=== PATIENT | male | born 1940 | race Caucasian/White ===

== ENCOUNTER 2024-03-10 15:17 | Outpatient (CLI) | payer MEDICARE, OTHER ==
[2024-03-10 15:33] LABS: HCT - HEMATOCRIT 40.3 % (42.0-52.0); HGB - HEMOGLOBIN 13.2 g/dL (14.0-18.0); MEAN CORPUSCULAR HEMOGLOBIN 30.8 pg (27.0-31.0); MEAN CORPUSCULAR HGB CONC 32.8 g/dL (32.0-36.0); MEAN CORPUSCULAR VOLUME 93.9 fL (80.0-94.0); MEAN PLATELET VOLUME 9.4 fL (7.4-11.4); RED BLOOD COUNT 4.29 10^6/uL (4.70-6.10); RED CELL DISTRIBUTION WIDTH 13.4 % (12.0-15.0); WHITE BLOOD COUNT 4.7 x10^3/uL (4.8-10.8)
[2024-03-10 15:47] LABS: ALBUMIN 4.4 g/dL (3.2-5.5); ALBUMIN/GLOBULIN RATIO 1.7 (1.0-2.2); BILIRUBIN,TOTAL 0.5 mg/dL (0.2-1.0); CALCIUM 10.9 mg/dL (8.5-10.3); CREATININE 1.1 mg/dL (0.6-1.3); POTASSIUM 4.1 mmol/L (3.5-4.5)
== END 2024-03-10 15:18 | disposition home or self-care (01) ==
LOC: LAB 15:17
PROVIDERS: ATTEND Emergency Medicine
DX: B34.9 Viral infection, unspecified (principal)
CPT/HCPCS: 36415; 80053; 85027

== ENCOUNTER 2024-06-13 10:01 | Emergency (ER) | payer MEDICARE, OTHER ==
[2024-06-13 10:40] LABS: BASOPHILS # (AUTO) 0.1 10^3/uL (0.0-0.1); EOSINOPHILS # (AUTO) 0.5 10^3/uL (0.0-0.7); EOSINOPHILS % (AUTO) 8.6 %; HCT - HEMATOCRIT 40.5 % (42.0-52.0); HGB - HEMOGLOBIN 13.5 g/dL (14.0-18.0); LYMPHOCYTES # (AUTO) 1.1 10^3/uL (1.5-3.5); LYMPHOCYTES % (AUTO) 18.5 %; MEAN CORPUSCULAR HEMOGLOBIN 31.3 pg (27.0-31.0); MEAN CORPUSCULAR HGB CONC 33.3 g/dL (32.0-36.0); MEAN PLATELET VOLUME 9.4 fL (7.4-11.4); MONOCYTES # (AUTO) 0.9 10^3/uL (0.0-1.0); MONOCYTES % (AUTO) 13.8 %; NEUTROPHILS # (AUTO) 3.6 10^3/uL (1.5-6.6); NEUTROPHILS % (AUTO) 57.9 %; PLT - PLATELET COUNT 145 10^3/uL (130-450); RED BLOOD COUNT 4.31 10^6/uL (4.70-6.10); RED CELL DISTRIBUTION WIDTH 12.9 % (12.0-15.0); WHITE BLOOD COUNT 6.2 x10^3/uL (4.8-10.8)
[2024-06-13 10:54] LABS: ALBUMIN/GLOBULIN RATIO 1.9 (1.0-2.2); BILIRUBIN,TOTAL 0.5 mg/dL (0.2-1.0); CALCIUM 10.8 mg/dL (8.5-10.3); CREATININE 1.1 mg/dL (0.6-1.3); POTASSIUM 4.1 mmol/L (3.5-4.5); TOTAL PROTEIN 6.1 g/dL (6.4-8.9)
--- NOTE | 2024-06-13 11:10 | XRAY Report ---
PROCEDURE: Chest 1V INDICATIONS: chest pain TECHNIQUE: One view of the chest was acquired. COMPARISON: None. FINDINGS: Surgical changes and devices: None. Lungs and pleura: No pleural effusions or pneumothorax. Lungs are clear. Calcified granuloma, left lung base Mediastinum: Mediastinal contours appear normal. Heart size is normal. Bones and chest wall: No suspicious bony lesions. Overlying soft tissues appear unremarkable. IMPRESSION: No acute cardiopulmonary process. Reviewed by: Cali Granados MD on 06/13/2024 11:09 AM PDT Approved by: Cali Granados MD on 06/13/2024 11:09 AM PDT Station ID: [id number]
--- NOTE | 2024-06-13 11:19 | ED Physician Documentation ---
History of Present Illness - Stated complaint Stated Complaint: CP - Chief complaint Chief Complaint: Cardiac - Additonal information Additional information: Patient is an 83-year-old male presenting to the emergency department with anterior chest pain that has been going on for the past 3 days. He notes it worsened around 4 AM when he woke up. He describes it as generalized pain across his chest. Patient has past medical history of coronary artery disease he has had 2 stents placed with the last one back a few months ago in February. He notes his symptoms do feel similar as to his previous NSTEMI's. He denies any shortness of breath no lower leg swelling. He has not found anything to make his symptoms better or worse. He did not take any nitroglycerin at home for his symptoms. He denies any dizziness or lightheadedness. He denies any headaches vision changes nausea vomiting. Patient is prediabetic but does not take any medications for this he has family history of coronary artery disease with his father. PD PAST MEDICAL HISTORY - Past Medical History Past Medical History: Yes Cardiovascular: Coronary artery disease, [place] Endocrine/Autoimmune: HyPOthyroidism, Other : Benign prostate hypertrophy Other Past Medical History: prediabetic, hyperlipidemia - Past Surgical History Past Surgical History: Yes - Allergies Allergies/Adverse Reactions: Allergies Allergy/AdvReac Type Severity Reaction Status Date / Time amlodipine AdvReac Emesis Verified 06/13/24 10:13 - Social History Does the pt smoke?: No Smoking Status: Former smoker Does the pt drink ETOH?: Yes ETOH Use: Wine Does the pt have substance abuse?: No - POLST Patient has POLST: No PD ED PE NORMAL - Vitals Vital signs reviewed: Yes - General General: Alert and oriented X 3 - HEENT HEENT: Atraumatic - Neck Neck: Supple, no meningeal sign - Cardiac Cardiac: RRR, No murmur, No gallop, No rub, Strong equal pulses, Other (No reproducible anterior chest pain on palpation) - Respiratory Respiratory: No respiratory distress, Clear bilaterally - Abdomen Abdomen: Normal bowel sounds, Soft, Non tender, Non distended, Other (No epigastric tenderness) - Male Male : Deferred - Rectal Rectal: Deferred - Derm Derm: Normal color, No rash - Neuro Neuro: Alert and oriented X 3 Eye Opening: Spontaneous Motor: Obeys Commands Verbal: Oriented GCS Score: 15 Results - Vitals Vitals: Vital Signs - 24 hr 06/13/24 06/13/24 06/13/24 10:03 10:30 11:00 Temperature 36.5 C Heart Rate 60 56 L 55 L Respiratory 18 15 15 Rate Blood Pressure 179/88 H 113/75 O2 Saturation 98 98 97 06/13/24 06/13/24 06/13/24 12:00 12:37 13:00 Temperature Heart Rate 55 L 56 L 64 Respiratory 18 19 18 Rate Blood Pressure 161/81 H 159/92 H 146/76 H O2 Saturation 95 97 97 06/13/24 06/13/24 13:25 14:00 Temperature Heart Rate 48 L 44 L Respiratory 16 Rate Blood Pressure 135/74 H 131/77 H O2 Saturation 98 97 Oxygen O2 Source Room air - Labs Labs: Laboratory Tests 06/13/24 06/13/24 06/13/24 10:31 10:31 12:17 WBC 6.2 RBC 4.31 L Hgb 13.5 L Hct 40.5 L MCV 94.0 MCH 31.3 H MCHC 33.3 RDW 12.9 Plt Count 145 MPV 9.4 Neut # (Auto) 3.6 Lymph # (Auto) 1.1 L [place] # (Auto) 0.9 Eos # (Auto) 0.5 Baso # (Auto) 0.1 Absolute Nucleated RBC 0.00 Nucleated RBC % 0.0 Sodium 134 L Potassium 4.1 Chloride 103 Carbon Dioxide 28 Anion Gap 3.0 L BUN 18 Creatinine 1.1 Estimated GFR (MDRD) 64 L Glucose 100 Calcium 10.8 H Total Bilirubin 0.5 AST 24 ALT 18 Alkaline Phosphatase 54 Troponin I High Sens 15.0 17.2 Total Protein 6.1 L Albumin 4.0 Globulin 2.1 Albumin/Globulin Ratio 1.9 Lipase 47 PD Medical Decision Making - ED course Complexity details: reviewed old records, reviewed results ED course: Patient is an 83-year-old male presenting to the emergency department with anterior chest pain and tightness symptoms have been going on for about 3 days but slowly worsening and his pain woke him up from his sleep around 4 AM this morning. Patient has history of coronary artery disease with his last stent played only a few months ago by his dry folder cloth in [place]. He notes he has been asymptomatic since then taking his medications as prescribed including aspirin and Plavix. He denies taking any nitroglycerin for his symptoms this morning. He denies any shortness of breath leg swelling or orthopnea. Vitals are stable on arrival. Patient slightly bradycardic but no hypertension afebrile and saturating well on room air. Physical exam shows no reproducible chest pain no abdominal tenderness no lower leg swelling and pulses equal in upper and lower extremities. Labs here in the emergency department show troponin of 15 chest x-ray is negative. CBC is unremarkable no signs of anemia. CMP shows no significant electrolyte abnormality to explain his symptoms and GFR is within normal baseline at 64. Will repeat troponin and EKG here in emergency department given symptoms. No previous EKG to compare to however initial EKG shows no signs of ST elevation. Repeat troponin at 2-hour eriberto shows troponin increased to 17.2 however EKG shows no signs of acute t wave changes or st changes. Still unable to compare to previous EKG previously. Discussed with patient's dry folder cloth Dr. Richards in [facility] and he will see patient in 2 to 3 weeks he is agreeable patient is stable and safe for discharge. He will call patient in the outpatient setting notes patient's baseline EKG shows sinus bradycardia and does have inferior lateral t wave changes at baseline. Patient updated and informed he is safe for discharge home at this time he is agreeable with this plan instructed patient to return to the emergency department with any worsening chest pain shortness of breath dizziness or lightheadedness or any other new or worsening symptoms. Patient understands and is agreeable with this plan. Departure - Departure Disposition: 01 Home, Self Care Clinical Impression: Atypical chest pain Condition: Good Instructions: ED Chest Pain Atypical Unkn Cause Comments: You were seen here in the emergency department for your anterior chest pain. Your workup here showed no acute changes. I discussed with your dry folder cloth over the phone and he will see you in 2 to 3 weeks in the outpatient setting. Return with any worsening chest pain shortness of breath dizziness or lightheadedness or any other new or worsening symptoms. Patient understands and is agreeable with this plan. Forms: PCP List
[2024-06-13] MEDS: NITROGLYCERIN 2% PASTE TOP STA (12:36)
[2024-06-13 15:07] VITALS: BP 147/76
[2024-06-13 15:29] VITALS: O2SAT 97
== END 2024-06-13 15:29 | disposition home or self-care (01) ==
LOC: ED 10:01
DX: R07.89 Other chest pain (principal); I25.10 Atherosclerotic heart disease of native coronary artery without angina pectoris; I25.2 Old myocardial infarction; I45.10 Unspecified right bundle-branch block; R00.1 Bradycardia, unspecified; R00.8 Other abnormalities of heart beat; I51.7 Cardiomegaly; Z79.82 Long term (current) use of aspirin; Z79.02 Long term (current) use of antithrombotics/antiplatelets; Z95.5 Presence of coronary angioplasty implant and graft
CPT/HCPCS: 36415; 71045; 80053; 83690; 84484; 85025; 93005; 99283; A9270